=== PATIENT | male | born 1945 | race Caucasian/White ===

== ENCOUNTER 2018-03-29 05:24 | Emergency (ER) | payer MEDICARE, OTHER ==
[2018-03-29] MEDS ORDERED: Sodium Chloride 0.9% 10 ML Syringe FLUSH PRN (06:19)
--- NOTE | 2018-03-29 06:26 | EDM.PDOC ---
<Johnnie Chen - Last Filed: 03/29/18 06:59> ED HPI GENERAL MEDICAL PROBLEM - General Chief Complaint: Abdominal Pain Stated Complaint: [facility] Time Seen by Provider: 03/29/18 06:03 Source of Information: Reports: Family (Spouse), RN Notes Reviewed History Limitations: Reports: Other (No old records available) - History of Present Illness INITIAL COMMENTS - FREE TEXT/NARRATIVE: EMS arrival Chief complaint Possible abdominal pain, restlessness History of present illness 33-year-old male who is largely nonverbal due to Parkinson's disease, brought in by ambulance after being called by his You woke up screaming and yelling and in discomfort. He indicated to the that it he was having pain in the abdomen and seemed to be on the right side. He had never behavior like this previously No history of prior surgery History of hypertension no longer treated and of Parkinson's disease on medication. From out of town, staying at a relatives house for the purposes of [email or web address]. EMS attempted to establish intravenous but failed, administered IM hydromorphone 1 mg and patient seemed to be comfortable on arrival. He is incontinent of urine uses adult diapers No diarrhea Abdominal Pain Score (Numeric/FACES): 3 - Related Data Allergies Allergy/AdvReac Type Severity Reaction Status Date / Time No Known Allergies Allergy Verified 03/29/18 05:47 Home Meds: Home Meds Carbidopa/Levodopa [Sinemet Cr 25-100 mg] 1 tab PO TID 03/29/18 [History] Carbidopa/Levodopa/Entacapone [Stalevo 125] 125 mg PO TID 03/29/18 [History] Lisinopril 20 mg PO DAILY 03/29/18 [History] Past Medical History HEENT History: Reports: Impaired Vision Cardiovascular History: Reports: High Cholesterol, Hypertension Respiratory History: Reports: Sleep Apnea Neurological History: Reports: Parkinson's Hematologic History: Reports: Anemia - Infectious Disease History Infectious Disease History: Reports: Chicken Pox, Measles Social & Family History - Tobacco Use Smoking Status *Q: Never Smoker - Caffeine Use Caffeine Use: Reports: Soda - Recreational Drug Use Recreational Drug Use: No ED ROS GENERAL - Review of Systems Review Of Systems: Unable To Obtain (Patient nonverbal) ED EXAM, GENERAL - Physical Exam Exam: See Below Exam Limited By: Physical Impairment (Limited mobility and limited medication due to Parkinson's disease) General Appearance: No Apparent Distress, Other (Appears calm, drifting off to sleep, Elevated blood pressure and mild bradycardia) Eye Exam: Bilateral Eye: Normal Inspection Ears: Normal External Exam Nose: Normal Inspection, Normal Mucosa Throat/Mouth: Normal Inspection, Normal Oropharynx Head: Atraumatic, Normocephalic Neck: Normal Inspection, Non-Tender. No: Lymphadenopathy (R), Lymphadenopathy ( L) Respiratory/Chest: No Respiratory Distress, Lungs Clear, No Accessory Muscle Use Cardiovascular: Normal Peripheral Pulses, Regular Rate, Rhythm, Systolic Murmur (Loudest at the left sternal border) GI/Abdominal: Normal Bowel Sounds, Soft, No Organomegaly, Pelvis Stable, Tender (Mild guarding right lower quadrant). No: Abnormal Bowel Sounds (Male) Exam: No Hernia, Normal Inspection Back Exam: Normal Inspection Skin Exam: Warm, Dry, Intact, Normal Color Course - Vital Signs Last Recorded V/S: Last Vital Signs Temp 97.2 F 03/29/18 05:37 Pulse 66 03/29/18 08:57 Resp 20 03/29/18 08:57 BP 182/79 H 03/29/18 08:57 Pulse Ox 97 03/29/18 08:57 - Orders/Labs/Meds Orders: Active Orders 24 hr Category Date Time Status Insert Urinary Catheter [OM.PC] Q24H Care 03/29/18 06:30 Ordered Peripheral IV Care [RC] . DIRECTED Care 03/29/18 06:19 Active Urinary Catheter Assessment [RC] ASDIRECTED Care 03/29/18 06:19 Active Abdomen Pelvis w Cont [CT] Stat Exams 03/29/18 06:58 Taken UA W/MICROSCOPIC [URIN] Stat Lab 03/29/18 06:46 Ordered Peripheral IV Insertion Adult [OM.PC] Routine Oth 03/29/18 06:18 Ordered Labs: Laboratory Tests 03/29/18 03/29/18 03/29/18 Range/Units 06:18 06:43 06:43 WBC 5.2 (4.5-11.0) K/uL RBC 4.43 (4.30-5.90) M/uL Hgb 13.4 (12.0-15.0) g/dL Hct 38.2 L (40.0-54.0) % MCV 86 (80-98) fL MCH 30 (27-31) pg MCHC 35 (32-36) % Plt Count 92 L (150-400) K/uL Sodium 141 (140-148) mmol/L Potassium 3.7 (3.6-5.2) mmol/L Chloride 107 (100-108) mmol/L Carbon Dioxide 25 (21-32) mmol/L Anion Gap 8.6 (5.0-14.0) mmol/L BUN 27 H (7-18) mg/dL Creatinine 0.9 (0.8-1.3) mg/dL Est Cr Clr Drug Dosing 67.94 mL/min Estimated GFR (MDRD) > 60 (>60) Glucose 110 H (74-106) mg/dL Lactic Acid 0.9 (0.4-2.0) mmol/L Calcium 8.1 L (8.5-10.1) mg/dL Total Bilirubin 1.0 (0.2-1.0) mg/dL AST 15 (15-37) U/L ALT 14 (12-78) U/L Alkaline Phosphatase 50 (46-116) U/L Total Protein 6.4 (6.4-8.2) g/dL Albumin 3.3 L (3.4-5.0) g/dL Globulin 3.1 (2.3-3.5) g/dL Albumin/Globulin Ratio 1.1 L (1.2-2.2) Lipase 167 (73-393) U/L Urine Color Urine Appearance Urine pH (4.5-8.0) Ur Specific [place] (1.008-1.030) Urine Protein (NEGATIVE) mg/dL Urine Glucose (UA) (NEGATIVE) mg/dL Urine Ketones (NEGATIVE) mg/dL Urine Occult Blood (NEGATIVE) Urine Nitrite (NEGAITVE) Urine Bilirubin (NEGATIVE) Urine Urobilinogen (NORMAL) mg/dL Ur Leukocyte Esterase (NEGATIVE) Urine RBC (0-5) Urine WBC (0-5) Ur Epithelial Cells Amorphous Sediment Urine Bacteria Urine Mucus 03/29/18 Range/Units 06:46 WBC (4.5-11.0) K/uL RBC (4.30-5.90) M/uL Hgb (12.0-15.0) g/dL Hct (40.0-54.0) % MCV (80-98) fL MCH (27-31) pg MCHC (32-36) % Plt Count (150-400) K/uL Sodium (140-148) mmol/L Potassium (3.6-5.2) mmol/L Chloride (100-108) mmol/L Carbon Dioxide (21-32) mmol/L Anion Gap (5.0-14.0) mmol/L BUN (7-18) mg/dL Creatinine (0.8-1.3) mg/dL Est Cr Clr Drug Dosing mL/min Estimated GFR (MDRD) (>60) Glucose (74-106) mg/dL Lactic Acid (0.4-2.0) mmol/L Calcium (8.5-10.1) mg/dL Total Bilirubin (0.2-1.0) mg/dL AST (15-37) U/L ALT (12-78) U/L Alkaline Phosphatase (46-116) U/L Total Protein (6.4-8.2) g/dL Albumin (3.4-5.0) g/dL Globulin (2.3-3.5) g/dL Albumin/Globulin Ratio (1.2-2.2) Lipase (73-393) U/L Urine Color Yellow Urine Appearance Slightly cloudy Urine pH 6.0 (4.5-8.0) Ur Specific [place] 1.020 (1.008-1.030) Urine Protein Negative (NEGATIVE) mg/dL Urine Glucose (UA) Normal (NEGATIVE) mg/dL Urine Ketones Negative (NEGATIVE) mg/dL Urine Occult Blood Negative (NEGATIVE) Urine Nitrite Negative (NEGAITVE) Urine Bilirubin Negative (NEGATIVE) Urine Urobilinogen Normal (NORMAL) mg/dL Ur Leukocyte Esterase Negative (NEGATIVE) Urine RBC 0-5 (0-5) Urine WBC 0-5 (0-5) Ur Epithelial Cells Not seen Amorphous Sediment Moderate Urine Bacteria Rare Urine Mucus Not seen Meds: Medications Discontinued Medications Generic Name Dose Route Start Last Admin Trade Name Freq PRN Reason Stop Dose Admin Hydromorphone HCl 0.5 mg 03/29/18 08:22 03/29/18 08:28 Dilaudid IVPUSH 03/29/18 08:23 0.5 mg ONETIME ONE Administration Sodium Chloride 1,000 mls @ 250 mls/hr 03/29/18 06:30 03/29/18 06:30 Normal Saline IV 250 mls/hr ASDIRECTED PAT Administration Sodium Chloride 70 mls @ 3 mls/sec 03/29/18 07:15 03/29/18 07:35 Normal Saline IV 03/29/18 20:00 3 mls/sec ASDIRECTED PAT Administration Iopamidol 100 ml 03/29/18 07:15 03/29/18 07:35 Isovue-300 (61%) IV 03/29/18 20:00 100 ml . DIRECTED PAT Administration Sodium Chloride 10 ml 03/29/18 06:19 03/29/18 06:30 Saline Flush FLUSH 10 ml ASDIRECTED PRN Administration Keep Vein Open Sodium Chloride 10 ml 03/29/18 07:04 03/29/18 07:35 Saline Flush FLUSH 03/29/18 07:05 10 ml ONETIME ONE Administration - Re-Assessments/Exams Free Text/Narrative Re-Assessment/Exam: 03/29/18 06:26 73-year-old malewith history, the miscommunication due to his Parkinson's disease, presenting after waking up screaming and moaning at home. Appeared to have discomfort in his abdomen, possibly to the right side. Better with hydromorphone 1 mg IM prior to arrival Differential diagnosis includes appendicitis, biliary colic renal colic gastroenteritis colitis and others Intravenous established no medications at this time Blood tests Straight catheter for specimen collection Ct abd/pelv Transfer to Dr Cowart 03/29/18 06:59 Departure - Departure Disposition: Home, Self-Care 01 Clinical Impression: Constipation by delayed colonic transit, Parkinsons disease Abdominal pain Qualifiers: Abdominal location: lower abdomen, unspecified Qualified Code(s): R10.30 - Lower abdominal pain, unspecified - Discharge Information Instructions: Constipation, Adult, [id number] Referrals: PCP,None [Primary Care Provider] - Forms: ED Department Discharge Care Plan Goals: 2 or 3 doses of MiraLAX daily for the next few days may be beneficial for constipation. Continue his regular medications and diet, activity as tolerated and return if worsening or concerns despite treatment. <Eduardo Cowart - Last Filed: 03/29/18 12:08> Course - Re-Assessments/Exams Free Text/Narrative Re-Assessment/Exam: 03/29/18 07:31 Labs returned very reassuring. White count is normal, entire chemistry profile is normal other than a mildly low calcium which the patient is taking supplementary calcium for. Kidney function is normal so he will get his IV enhanced abdominal and pelvis CT scan. I did allow him to take his normal dose of Parkinson's medication. 03/29/18 08:08 CT scan showed mild colonic constipation but no other acute findings. I recommended the patient try 1 or 2 doses of MiraLAX daily for the next several days and continue his regular medications. Departure - Departure Time of Disposition: 08:58 Condition: Fair
[2018-03-29] MEDS ORDERED: Sodium Chloride 0.9% 1,000 ML IV SCH (06:30)
[2018-03-29] MEDS ORDERED: Sodium Chloride 0.9% 10 ML Syringe FLUSH ONE (07:04)
[2018-03-29] MEDS ORDERED: Iopamidol 612 MG/ML 100 ML Bottle IV SCH (07:15)
[2018-03-29] MEDS: HYDROmorphone 0.5 MG/0.5 ML Syringe IVPUSH ONE (08:28)
== END 2018-03-29 08:59 | disposition home or self-care (01) ==
LOC: JP.ED 05:24
DX: K59.01 Slow transit constipation (principal); G20 Parkinson's disease; I10 Essential (primary) hypertension; E78.00 Pure hypercholesterolemia, unspecified; Z79.899 Other long term (current) drug therapy
CPT/HCPCS: 36415; 51701; 74177; 80053; 81001; 83605; 83690; 85027; 96361; 96374; 99285; J1170; J7030; J7050; Q9967